=== PATIENT | female | born 1970 | race Caucasian/White ===

== ENCOUNTER → 2022-03-25 | Outpatient (CLI) | payer BC ==
--- NOTE | 2022-03-26 08:54 | MM ---
Reason for Exam: Screening (asymptomatic). Last mammogram was performed 14 year(s) and 7 month(s) ago. Patient History: Menarche at age 9. First Full-Term at age 18. Postmenopausal. Patient has history of breast feeding. Hormonal Contraceptives for 3 years from age 17 until age 20. Maternal grandmother had breast cancer, age 75. Mother had breast cancer at or over age 50. Risk Values: Radha 5 year model risk: 2.1%. NCI Lifetime model risk: 17.2%. Prior Study Comparison: 08/27/2007 Bilateral Diagnostic Mammogram, [facility]. Tissue Density: The breast tissue is heterogeneously dense. This may lower the sensitivity of mammography. Findings: Analyzed By CAD. There is a mass in the left breast upper outer quadrant measuring 6 mm at middle depth 7.5 cm from the nipple on CC view and 6.8 cm the nipple on MLO view. No suspicious masses, calcifications or distortions within the right breast intramammary lymph nodes noted in the lateral upper aspect. Overall Assessment: Incomplete: need additional imaging evaluation, BI-RAD 0 Management: Diagnostic Breast Ultrasound of the left breast. A clinical breast exam by your physician is recommended on an annual basis and results should be correlated with mammographic findings. [facility] will attempt to contact patient to return for supplemental views and ultrasound if indicated. Electronically signed and approved by: Amauri Jauregui DO
== END | disposition home or self-care (01) ==
LOC: RADMAMWWP 16:20
PROVIDERS: ATTEND Family Medicine
DX: Z12.31 Encounter for screening mammogram for malignant neoplasm of breast (principal); Z80.3 Family history of malignant neoplasm of breast; Z78.0 Asymptomatic menopausal state
CPT/HCPCS: 77063; 77067

== ENCOUNTER → 2022-03-29 | Outpatient (CLI) | payer BC ==
--- NOTE | 2022-03-29 14:22 | USB ---
Patient History: Menarche at age 9. First Full-Term at age 18. Postmenopausal. Patient has history of breast feeding. Hormonal Contraceptives for 3 years from age 17 until age 20. Maternal grandmother had breast cancer, age 75. Mother had breast cancer at or over age 50. Risk Values: Radha 5 year model risk: 2.1%. NCI Lifetime model risk: 17.2%. Technique: Method: Targeted. Prior Study Comparison: 08/27/2007 Bilateral Diagnostic Mammogram, [facility]. 03/25/2022 Bilateral MG 3D screening mammo w/cad, [facility]. Findings: The upper outer quadrant of the left breast, the axilla of the left breast and the retroareolar of the left breast were scanned. Targeted ultrasound of the left breast from 12-3 o'clock was performed with additional evaluation of the nipple and axillary tail. There is an hypoechoic lesion measuring 7 x 4 x 8 mm within the left breast at 2:00 a size from the nipple with thin septations and some peripheral color flow. No posterior acoustic features. This may represent fibrocystic changes or a cluster of cysts. Overall Assessment: Probably benign, BI-RAD 3 Management: Diagnostic Breast Ultrasound of the left breast in 6 months. A clinical breast exam by your physician is recommended on an annual basis and results should be correlated with mammographic findings. This exam should not preclude additional follow-up of suspicious palpable abnormalities. Results were given to the patient verbally at the time of exam. Electronically signed and approved by: Leon Waller D.O.
== END | disposition home or self-care (01) ==
LOC: RADUSWWP 13:23
PROVIDERS: ATTEND Family Medicine
DX: R92.8 Other abnormal and inconclusive findings on diagnostic imaging of breast (principal); Z80.3 Family history of malignant neoplasm of breast; Z78.0 Asymptomatic menopausal state

== ENCOUNTER → 2022-06-13 | Outpatient (CLI) | payer BC ==
[2022-06-13 13:22] VITALS: BP 132/76; PULSE 78; RESP 17; TEMP 98.2
--- NOTE | 2022-06-13 13:37 | P.GSHP ---
History of Present Illness H&P Date: 06/13/22 Chief Complaint: abnormal left breast ultrasound Penelope is a 51 year old white female seen in consultation for DR. Alford regarding an abnormal left breast mammogram and ultrasound. She had a bilateral mammogram on 03-25-22, this showed a 6 mm mass in the UOQ of the left breast. This led to an ultrasound on 03-29-22 which was felt to be most likely cysitc and BIRAD 3. Repeat ultrasoud in 6 months recommended. Does not feel any specific lumps masses or nodules of concern in either breast. This was a routine screening mammogram. Has never had any surgery on her breast. She is not complaining of any recent trauma or infection in the breast. She is not complaining of any nipple discharge or skin changes. 03-25-[address] Alford reviewed Radha Risk 2.1% CAffiene: 2 cups coffee/day nicotine: none chocolate: occasional BCP: 2 years in the remote past Family History: mother: bilateral breast cancer DX. in her 50,s , cervical cancer maternal grandmother: bilateral breast cancer dx. in her 50's Hormonal History: menarche: 9 M2, breast fed: no, age at first : 19 menopause: uterine ablation late 30's, now hot flashes takes over the counter estroven no other hormones Surgical History: knee bilateral gallbladder sinus surgery uterine ablation Medical HIstory: ADHD sciatica Social History: nicotine: none alcohol:occasional drugs: CBD marijuana mixture to sleep - Constitutional Constitutional: Reports sweats, Denies chills, Denies fever - EENT Eyes: denies blurred vision, denies pain Ears: deny: decreased hearing, tinnitus Ears, nose, mouth and throat: Denies headache, Denies sore throat - Breasts Breasts: bilateral: as per HPI - Cardiovascular Cardiovascular: Denies chest pain, Denies shortness of breath - Respiratory Respiratory: Denies cough, Denies 7 - Gastrointestinal Comment: IBS Gastrointestinal: Denies abdominal pain, Denies diarrhea, Denies nausea, Denies vomiting - Genitourinary (Female) Genitourinary: Denies dysuria, Denies hematuria - Menstruation Menstruation: Reports postmenopausal - Musculoskeletal Musculoskeletal: Denies myalgias - Integumentary Integumentary: Denies pruritus, Denies rash - Neurological Neurological: Denies numbness, Denies weakness - Psychiatric Psychiatric: Reports anxiety, Denies depression - Endocrine Endocrine: Denies fatigue, Denies weight change - Hematologic/Lymphatic Comment: none - Allergic/Immunologic Allergic/Immunologic: Reports seasonal allergies Medications and Allergies Home Medications Medication Instructions Recorded Confirmed Type Dextroamphetamine/Amphetamine 20 mg PO BID 06/13/22 06/13/22 History [Adderall] diazePAM [Valium] 5 mg PO DIRECTED PRN 06/13/22 06/13/22 History oxyCODONE-APAP 10-325MG [Percocet 1 tab PO DIRECTED PRN 06/13/22 06/13/22 History 10-325 mg] Allergies Allergy/AdvReac Type Severity Reaction Status Date / Time Penicillins Allergy Unknown Unverified 06/13/22 13:12 Childhood Surgical - Exam - General moderate distress - Eyes normal ocular movement - ENT no hearing loss - Neck trachea midline - Respiratory normal respiratory effort, clear to auscultation - Cardiovascular Rhythm: regular Heart Sounds: normal: S1, S2 - Abdomen Abdomen: soft, non tender, no guarding, no rigid, no rebound - Integumentary normal turgor - Neurologic no disoriented, no combative - Musculoskeletal normal gait, normal posture - Psychiatric oriented to time, oriented to person, oriented to place, speech is normal, memory intact Breast Exam: BRA: 36D Inspection: Bilateral grade 2ptosis Palpation: Right breast: Multiple positional exam fibrocystic changes no dominant masses or nodules of concern, right breast slightly larger than left breast Right axilla: No adenopathy of concern Left breast: Multi-positional exam fibrocystic changes no dominant masses or nodules of concern Left axilla: No adenopathy of concern Results Mammogram and ultrasound personally reviewed Assessment and Plan Assessment: Impression: Radiographic abnormality left breast Fibrocystic breast changes Positive family history of breast cancer Sciatica ADHD Plan: Repeat left breast ultrasound September 2022 with appointment at that time Consider genetic testing Patient's 5 year risk of breast cancer is 2.1% we have discussed chemoprophylaxis and at this time she has declined we have discussed estrovan and the possible increased risk of breast cancer I have recommende that she stop this and she will consider stopping this CC: Dr. Alford
== END ==
LOC: WWCWWP 12:21
PROVIDERS: ATTEND Surgery
DX: N60.12 Diffuse cystic mastopathy of left breast (principal); Z80.3 Family history of malignant neoplasm of breast; M54.30 Sciatica, unspecified side; F90.9 Attention-deficit hyperactivity disorder, unspecified type; Z88.0 Allergy status to penicillin

== ENCOUNTER → 2022-10-10 | Outpatient (CLI) | payer BC ==
--- NOTE | 2022-10-10 08:28 | USB ---
Reason for Exam: Follow-up at short interval from prior study. Patient History: Menarche at age 9. First Full-Term at age 18. Postmenopausal. Patient has history of breast feeding. Hormonal Contraceptives for 3 years from age 17 until age 20. Maternal grandmother had breast cancer, age 75. Mother had breast cancer at or over age 50. Risk Values: Radha 5 year model risk: 2.2%. NCI Lifetime model risk: 16.9%. Technique: Method: Targeted. Prior Study Comparison: 08/27/2007 Bilateral Diagnostic Mammogram, [facility]. 03/25/2022 Bilateral MG 3D screening mammo w/cad, [facility]. Findings: The upper outer quadrant of the left breast, the axilla of the left breast and the retroareolar of the left breast were scanned. No solid or cystic masses are identified.. Overall Assessment: Negative, BI-RAD 1 Management: Screening Mammogram of both breasts in 6 months. A clinical breast exam by your physician is recommended on an annual basis and results should be correlated with mammographic findings. This exam should not preclude additional follow-up of suspicious palpable abnormalities. Results were given to the patient verbally at the time of exam. Electronically signed and approved by: Theo Quinn M.D. Radiologis
== END | disposition home or self-care (01) ==
LOC: RADUSWWP 08:05
PROVIDERS: ATTEND Surgery
DX: R92.8 Other abnormal and inconclusive findings on diagnostic imaging of breast (principal); Z78.0 Asymptomatic menopausal state; Z80.3 Family history of malignant neoplasm of breast

== ENCOUNTER → 2024-03-05 | Outpatient (CLI) | payer BC ==
[2024-03-05 15:36] LABS: ALT 30 U/L (8-44); AST 21 U/L (13-35); Albumin 4.3 g/dL (3.8-4.9); Albumin/Globulin Ratio 1.54 Ratio (1.60-3.17); Alkaline Phosphatase 125 U/L (41-126); BUN/Creat Ratio 17.14 Ratio (12.00-20.00); Calcium 9.3 mg/dL (8.7-10.3); Carbon Dioxide 24.4 mmol/L (21.6-31.8); Chloride 106 mmol/L (96-109); Chol/HDL Ratio 4.81 Ratio; Globulin 2.8 g/dL (1.6-3.3); Glucose 105 mg/dL (70-110); LDL Cholesterol,Calculated 112.5 mg/dL (0.0-131.0); Potassium 4.3 mmol/L (3.5-5.5); Sodium 140 mmol/L (135-145); T4, Free (Free Thyroxine) 1.04 ng/dL (0.80-1.80); Total Bilirubin 0.4 mg/dL (0.3-1.2); Total Protein 7.1 g/dL (6.2-8.2)
[2024-03-05 17:08] LABS: Basophils # (A) 0.09 X 10*3/uL (0.00-0.10); Eosinophils # (A) 0.44 X 10*3/uL (0.04-0.35); Eosinophils % (A) 4.9 %; HCT 44.7 % (37.2-46.3); HGB 14.3 g/dL (12.0-15.0); Lymphocytes # (A) 2.85 X 10*3/uL (0.90-5.00); Lymphocytes % (A) 31.7 %; MCH 28.5 pg (27.0-32.0); Mean Platelet Volume 10.6 FL (9.5-12.2); Monocytes # (A) 0.73 X 10*3/uL (0.20-1.00); Monocytes % (A) 8.1 %; NRBC Per 100 WBC 0 X 10*3/uL (0.00-0.01); Neutrophils # (A) 4.86 X 10*3/uL (1.80-7.70); Platelet Count 377 X 10*3/uL (140-440); RBC 5.02 X 10*6/uL (4.10-5.20); RDW 13.2 % (11.5-14.5)
--- NOTE | 2024-03-06 | BD ---
EXAMINATION TYPE: Axial Bone Density DATE OF EXAM: 03/05/2024 CLINICAL HISTORY: 53 years old Female. ICD-10 CODE: Z12.31 SCR MAMMO N91.1 POST CIRO M25.250 JOINT P AI , Additional History: Height: 62.5 Weight: 193.1 FRAX RISK QUESTIONS: Alcohol (3 or more units per day): no Family History (Parent hip fracture): no Glucocorticoids (More than 3mos): no (Ex: prednisone, prednisolone, methylprednisolone, dexamethasone, and hydrocortisone). History of Fracture in Adulthood: yes Secondary Osteoporosis: 1. Type 1 Diabetes: no 2. Hyperthyroidism: no 3. Menopause before 45: yes 4. Malnutrition: no 5. Chronic liver disease: no Rheumatoid Arthritis: no Current Tobacco Use: no RISK FACTORS HISTORY OF: Hip Fracture (Right/Left): no Spine Fracture: no History of Wrist Fracture: yes Surgery to Spine/Hip(right/left)/Wrist (right/left): no MEDICATIONS: Thyroid Medications: no Osteoporosis Medications: no EXAM MEASUREMENTS: Bone mineral densitometry was performed using the [facility]. Bone mineral density as measured about the Lumbar spine is: ----- L1-L4(G/cm2): 1.494 T Score Values are as follows: ----- L1: 1.47 ----- L2: 2.4 ----- L3: 3.7 ----- L4: 2.6 ----- L1-L4: 2.6 Z Score Values are as follows: ----- L1: 1.3 ----- L2: 2.3 ----- L3: 3.6 ----- L4: 2.6 ----- L1-L4: 2.5 BASELINE STUDY Bone mineral density about the R hip (g/cm2): 1.066 Bone mineral density about the L hip (g/cm2): 1.085 T Score values are as follows: -----R Neck: -0.4 -----L Neck: -0.3 -----R Total: 0.5 -----L Total: 0.6 Z Score values are as follows: -----R Neck: 0.0 -----L Neck: 0.2 -----R Total: 0.5 -----L Total: 0.6 Baseline Study FRAX%s: The graph provided illustrates a 8.2% chance for a major osteoporotic fx and a 0.2% chance fo r the hips probability for fx in 10 years time. IMPRESSION: Normal (Values between +1 and -1 indicate normal bone mass). Consider repeating this study in 5 year s or sooner if there is some new clinical indication. NOTE: T-SCORE=SD OF THE YOUNG ADULT MEAN. [facility], , 03/05/2024 11:58 PM
--- NOTE | 2024-03-08 10:50 | MM ---
Reason for Exam: Screening (asymptomatic). Last mammogram was performed 1 year(s) and 11 month(s) ago. Patient History: Menarche at age 9. First Full-Term at age 18. Postmenopausal. Patient has history of breast feeding. Hormonal Contraceptives for 3 years from age 17 until age 20. Maternal grandmother had breast cancer, age 75. Mother had breast cancer at or over age 50. Risk Values: Radha 5 year model risk: 2.2%. NCI Lifetime model risk: 16.6%. Prior Study Comparison: 08/27/2007 Bilateral Diagnostic Mammogram, [facility]. 03/25/2022 Bilateral MG 3D screening mammo w/cad, [facility]. Tissue Density: The breasts are heterogeneously dense, which may obscure small masses. Findings: Analyzed By CAD. Right breast: There is no suspicious group of microcalcifications or new suspicious mass. Left breast: There is no suspicious group of microcalcifications or new suspicious mass. Overall Assessment: Negative, BI-RAD 1 Management: Screening Mammogram of both breasts in [address] [facility] will attempt to contact patient to return for supplemental views and ultrasound if indicated. Patient should continue monthly self-breast exams. A clinical breast exam by your physician is recommended on an annual basis. This exam should not preclude additional follow-up of suspicious palpable abnormalities. Note on Radha scores and lifetime risk: 1. A Radha score greater than 3% is considered moderate risk. If this is the case, consider specialist referral to assess eligibility for a risk reducing agent. 2. If overall lifetime risk for the development of breast cancer is 20% or higher, the patient may qualify for future screening with alternating mammogram and breast MRI. [facility], , 03/08/2024 10:46 AM. Electronically signed and approved by: Amauri Jauregui DO
== END | disposition home or self-care (01) ==
LOC: RADMAMWWP 08:42
PROVIDERS: ATTEND Family Medicine
DX: Z12.31 Encounter for screening mammogram for malignant neoplasm of breast (principal); R92.333 Mammographic heterogeneous density, bilateral breasts; Z00.00 Encounter for general adult medical examination without abnormal findings; Z13.220 Encounter for screening for lipoid disorders; N91.1 Secondary amenorrhea; E55.9 Vitamin D deficiency, unspecified; E78.5 Hyperlipidemia, unspecified; R53.83 Other fatigue; Z78.0 Asymptomatic menopausal state; Z80.3 Family history of malignant neoplasm of breast
CPT/HCPCS: 77063; 77067; 77080; 80053; 80061; 82306; 84439; 84443; 84550; 85025